=== PATIENT | female | born 1975 | race Caucasian/White ===

== ENCOUNTER 2018-02-10 18:23 | Observation (INO) | payer OTHER ==
[2018-02-10 19:20] VITALS: BMI 22.8
--- NOTE | 2018-02-10 19:24 | PDOC ---
History of Present Illness - General History Source: Patient Exam Limitations: No Limitations - History of Present Illness Initial Comments: The patient is a 42 year old female who presents to the emergency department for evaluation of abnormal ECG. The patient reports visiting her PCP to obtain an ECG and was prompted to visit the emergency department for evaluation of abnormal ECG indicating lateral ischemia. The patient reports intermittent episodes of left sided chest tightness with associated dizziness. She reports multiple episodes of dizziness occurring since Friday. Of note, the patient is currently taking Warfarin. The patient denies changes to vision, shortness of breath, headache, fevers, chills, nausea, vomiting, diarrhea, and constipation. Denies dysuria, frequency, urgency, and hematuria. 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 MEDICATIONS: reviewed ALLERGIES: As per nursing notes Review of Systems General: No fevers or chills, no weakness, no weight loss HEENT: No change in vision. No sore throat,. No ear pain Cardiovascular: (+)Left sided chest tightness. No shortness of breath. Respiratory:No cough, or wheezing. Gastrointestinal: no nausea, vomiting, diarrhea or constipation, No rectal bleeding Genitourinary: No dysuria, hematuria, or frequency Musculoskeletal: No joint or muscle pain or swelling Neurologic: (+)Dizziness. No headache, vertigo, or loss of consciousness. Psychiatric: nor depression Skin: No rashes or easy bruising Endocrine: no increased thirst or abnormal weight change Allergic: no skin or latex allergy All other systems reviewed and normal Physical Exam General: (+)Appears slightly distressed. Well-nourished well-developed individual. HEENT: Throat: Normal, tonsils normal, no erythema or exudate Neck: Supple. Eyes:Pupils equal reactive and round, extraocular motion intact Chest: Nontender to palpation Cardiac: S1-S2 normal, regular rate and rhythm, no murmurs rubs or gallops Respiratory: Lungs clear to auscultation bilateral Abdomen: Soft, nondistended, normal bowel sounds, nontender to palpation diffusely Extremities: Warm, dry, no cyanosis, clubbing, or edema Skin: No rashes Neuro: Alert and oriented x3, nonfocal exam, grossly intact. Psych: Normal mood and affect <Sarah Hirsch - Last Filed: 02/10/18 20:42> - General History Source: Patient ( just slipped and fell landed on the left side of) Exam Limitations: No Limitations - History of Present Illness Initial Comments: 02/10/18 20:01 A portion of this note was documented by scribe services under my direction. I have reviewed the details of the note, within reason, and agree with the documentation. The case summary and management plan written by me. A portion of this note was documented by scribe services under my direction. I have reviewed the details of the note, within reason, and agree with the documentation. The case summary and management plan written by me. Medical decision making: This is a 42-year-old female who comes in complaining of some dizziness that is intermittent as well as some chest discomfort that is intermittent. Patient has history of a PE in the past that resulted in a CVA. Patient is on anticoagulants however she also has a history of hypertension. Patient was sent in from her doctor's office for evaluation of an abnormal cardiogram that shows some lateral ischemia. Will obtain a workup including repeat EKG, cardiac enzymes, CBC, comp, chest x- ray, d-dimer Once workup is complete in the emergency department patient will be admitted to a observation telemetry bed for further evaluation and to rule out ACS. If patient's d-dimer is elevated I will do a CT angiogram of her chest Will reassess and review results of workup 02/10/18 21:32 Reevaluation patient remains stable without complaints no further chest pain in the emergency department. Patient's blood work is unremarkable including a negative troponin and normal d- dimer. Patient will be admitted to an observation telemetry bed under the hospitalist service. <Alvina Low I - Last Filed: 02/10/18 21:33> - General Stated Complaint: ABNORMAL EKG Time Seen by Provider: 02/10/18 19:15 Past History <Sarah Hirsch - Last Filed: 02/10/18 20:42> - Past Medical History COPD: No - Suicide/Smoking/Psychosocial Hx Smoking History: Never smoked Have you smoked in the past 12 months: No Information on smoking cessation initiated: No Hx Alcohol Use: No Drug/Substance Use Hx: No Substance Use Type: None <Alvina Low I - Last Filed: 02/10/18 21:33> - Past Medical History Allergies/Adverse Reactions: Allergies Allergy/AdvReac Type Severity Reaction Status Date / Time No Known Allergies Allergy Verified 02/10/18 18:25 Home Medications: Ambulatory Orders Carvedilol 3 tab PO BID 02/10/18 Lisinopril 5 mg PO DAILY 02/10/18 Warfarin Sodium [Coumadin] 3 mg PO DAILY 02/10/18 *Physical Exam - Vital Signs Last Vital Signs Temp Pulse Resp BP Pulse Ox 98.3 F 68 20 117/74 100 02/10/18 18:25 02/10/18 18:25 02/10/18 18:25 02/10/18 18:25 02/10/18 18:25 <Sarah Hirsch - Last Filed: 02/10/18 20:42> - Vital Signs Last Vital Signs Temp Pulse Resp BP Pulse Ox 98.3 F 68 20 117/74 100 02/10/18 18:25 02/10/18 18:25 02/10/18 18:25 02/10/18 18:25 02/10/18 18:25 <Alvina Low I - Last Filed: 02/10/18 21:33> ED Treatment Course - LABORATORY CBC & Chemistry Diagram: 02/10/18 19:45 02/10/18 19:45 - ADDITIONAL ORDERS Additional order review: Laboratory Results 02/10/18 02/10/18 19:45 19:45 PT with INR 23.3 H INR 2.11 H Urine Color Yellow Urine Appearance Clear Urine pH 5.5 Ur Specific [place] <= 1.005 Urine Protein Negative Urine Glucose (UA) Negative Urine Ketones Negative Urine Blood Negative Urine Nitrite Negative Urine Bilirubin Negative Urine Urobilinogen 0.2 Ur Leukocyte Esterase Negative Urine HCG, Qual Negative 02/10/18 19:45 RBC 4.10 MCV 93.4 MCHC 35.9 RDW 11.6 MPV 8.6 Neutrophils % 72.3 Lymphocytes % 20.9 Monocytes % 5.3 Eosinophils % 1.1 Basophils % 0.4 <Sarah Hirsch - Last Filed: 02/10/18 20:42> - LABORATORY CBC & Chemistry Diagram: 02/10/18 19:45 02/10/18 19:45 <Alvina Low I - Last Filed: 02/10/18 21:33> *DC/Admit/Observation/Transfer - Attestations Scribe Attestion: Documentation prepared by Sarah Hirsch, acting as medical officer for Alvina Low MD. <Sarah Hirsch - Last Filed: 02/10/18 20:42> - Discharge Dispostion Decision to Admit order: Yes <Alvina Low I - Last Filed: 02/10/18 21:33> Diagnosis at time of Disposition: Chest pain Qualifiers: Chest pain type: unspecified Qualified Code(s): R07.9 - Chest pain, unspecified - Discharge Dispostion Disposition: HOME
[2018-02-10 19:57] LABS: PH,URINE 5.5 (4.5-8); URINE APPEARANCE Clear; URINE BILIRUBIN Negative (NEGATIVE); URINE BLOOD Negative (NEGATIVE); URINE GLUCOSE (UA) Negative (NEGATIVE); URINE KETONE Negative (NEGATIVE); URINE LEUK ESTERASE Negative (NEGATIVE); URINE NITRITE Negative (NEGATIVE); URINE PROTEIN Negative (NEGATIVE); URINE UROBILINOGEN 0.2 (0.2-1.0)
[2018-02-10 20:03] LABS: URINE COLOR YELLOW
[2018-02-10 20:04] LABS: BASO % 0.4 % (0-2.0); EOS % 1.1 % (0-4.5); HCG,QUALITATIVE URINE NEGATIVE; HEMATOCRIT 38.3 % (32.4-45.2); HEMOGLOBIN 13.7 GM/dl (10.7-15.3); LYMPH % 20.9 % (8-40); MCH 33.5 pg (25.7-33.7); MCHC 35.9 g/dl (32.0-36.0); MEAN CELL VOLUME 93.4 fl (80-96); MEAN PLT VOLUME 8.6 fl (7.5-11.1); MONO % 5.3 % (3.8-10.2); NEUT % 72.3 % (42.8-82.8); PLATELET COUNT 204 K/MM3 (134-434); RDW 11.6 % (11.6-15.6); WHITE BLOOD COUNT 6.4 K/mm3 (4.0-10.8)
[2018-02-10 20:12] LABS: INR 2.11 (0.82-1.09); PROTHROMBIN TIME (PATIENT) 23.3 SEC (10.2-13.0)
[2018-02-10 20:18] LABS: ALBUMIN 4.1 g/dl (3.5-5.0); ALK PHOS 29 U/L (32-92); ANION GAP 4 (8-16); BILIRUBIN,TOTAL 0.9 mg/dl (0.2-1.0); BLOOD UREA NITROGEN 16 mg/dl (7-18); CALCIUM 8.9 mg/dl (8.4-10.2); CHLORIDE 104 mmol/L (98-107); CO2 27 mmol/L (22-28); GLUCOSE,RANDOM 92 mg/dl (74-106); POTASSIUM 3.6 mmol/L (3.5-5.1); SGOT/AST 15 U/L (10-42); SGPT/ALT 10 U/L (10-40); SODIUM 135 mmol/L (136-145)
[2018-02-10 20:19] LABS: CREATININE < 0.8 mg/dl (0.6-1.3)
--- NOTE | 2018-02-10 23:56 | HP ---
CHIEF COMPLAINT: chest pain PCP: Cardiology: Dr. 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 She had an ECG done at work which revealed ST/T wave abnormalities and was advised to be evaluated in the ED. ER course was notable for: (1) Troponin neg (2) ECG with ST / T wave abnormalities Recent Travel: pt denies PAST MEDICAL HISTORY: PE & CVA 2014, EF 40% ?viral cardiomyopathy PAST SURGICAL HISTORY: pt denies Social History: Smoking: pt denies Alcohol: "rarely" Drugs: pt denies Family History: mother with fibromyalgia father no known medical problems sister with hypothyroid Allergies No Known Allergies Allergy (Verified 02/10/18 18:25) HOME MEDICATIONS: 3 Medication Instructions Recorded Alprazolam [Xanax] 0.5 mg PO ONCE #1 tablet MDD 1 02/10/18 Carvedilol 3 tab PO BID 02/10/18 Lisinopril 5 mg PO DAILY 02/10/18 Warfarin Sodium [Coumadin] 3 mg PO DAILY 02/10/18 REVIEW OF SYSTEMS CONSTITUTIONAL: Absent: fever, chills, diaphoresis, generalized weakness, malaise, loss of appetite, weight change HEENT: Absent: rhinorrhea, nasal congestion, throat pain, throat swelling, difficulty swallowing, mouth swelling, ear pain, eye pain, visual changes CARDIOVASCULAR: Absent: chest pain, syncope, palpitations, irregular heart rate, lightheadedness , peripheral edema RESPIRATORY: Absent: cough, shortness of breath, dyspnea with exertion, orthopnea, wheezing, stridor, hemoptysis GASTROINTESTINAL: Absent: abdominal pain, abdominal distension, nausea, vomiting, diarrhea, constipation, melena, hematochezia GENITOURINARY: Absent: dysuria, frequency, urgency, hesitancy, hematuria, flank pain, genital pain MUSCULOSKELETAL: Absent: myalgia, arthralgia, joint swelling, back pain, neck pain SKIN: Absent: rash, itching, pallor HEMATOLOGIC/IMMUNOLOGIC: Absent: easy bleeding, easy bruising, lymphadenopathy, frequent infections ENDOCRINE: Absent: unexplained weight gain, unexplained weight loss, heat intolerance, cold intolerance NEUROLOGIC: Absent: headache, focal weakness or paresthesias, dizziness, unsteady gait, seizure, mental status changes, bladder or bowel incontinence PSYCHIATRIC: Absent: anxiety, depression, suicidal or homicidal ideation, hallucinations. PHYSICAL EXAMINATION Vital Signs - 24 hr 3 02/10/18 02/10/18 02/10/18 18:25 21:44 23:08 Temperature 98.3 F Pulse Rate 68 Pulse Rate [ 68 Left] Respiratory 20 16 16 Rate Blood Pressure 117/74 Blood Pressure 103/60 [Right] O2 Sat by Pulse 100 100 100 Oximetry (%) GENERAL: Awake, alert, and fully oriented, in no acute distress. HEAD: Normal with no signs of trauma. EYES: Pupils equal, round and reactive to light, extraocular movements intact, sclera anicteric, conjunctiva clear. No lid lag. EARS, NOSE, THROAT: Ears normal, nares patent, oropharynx clear without exudates. Moist mucous membranes. NECK: Normal range of motion, supple without lymphadenopathy, JVD, or masses. LUNGS: Breath sounds equal, clear to auscultation bilaterally. No wheezes, and no crackles. No accessory muscle use. HEART: Regular rate and rhythm, normal S1 and S2 without murmur, rub or gallop. ABDOMEN: Soft, nontender, not distended, normoactive bowel sounds, no guarding, no rebound, no masses. No hepatomegaly or splenomegaly. MUSCULOSKELETAL: Normal range of motion at all joints. No bony deformities or tenderness. No CVA tenderness. UPPER EXTREMITIES: 2+ pulses, warm, well-perfused. No cyanosis. No clubbing. No peripheral edema. LOWER EXTREMITIES: 2+ pulses, warm, well-perfused. No calf tenderness. No peripheral edema. NEUROLOGICAL: Cranial nerves II-XII intact. Normal speech. Normal gait. PSYCHIATRIC: Cooperative. Good eye contact. Appropriate mood and affect. SKIN: Warm, dry, normal turgor, no rashes or lesions noted, normal capillary refill. Laboratory Results - last 24 hr 3 02/10/18 02/10/18 02/10/18 19:45 19:45 19:45 WBC 6.4 RBC 4.10 Hgb 13.7 Hct 38.3 MCV 93.4 MCH 33.5 MCHC 35.9 RDW 11.6 Plt Count 204 MPV 8.6 Absolute Neuts (auto) 4.7 Neutrophils % 72.3 Lymphocytes % 20.9 Monocytes % 5.3 Eosinophils % 1.1 Basophils % 0.4 PT with INR INR D-Dimer < 200 Sodium Potassium Chloride Carbon Dioxide Anion Gap BUN Creatinine Creat Clearance w eGFR Random Glucose Calcium Total Bilirubin AST ALT Alkaline Phosphatase Creatine Kinase Troponin I Total Protein Albumin Urine Color Yellow Urine Appearance Clear Urine pH 5.5 Ur Specific [place] <= 1.005 Urine Protein Negative Urine Glucose (UA) Negative Urine Ketones Negative Urine Blood Negative Urine Nitrite Negative Urine Bilirubin Negative Urine Urobilinogen 0.2 Ur Leukocyte Esterase Negative Urine HCG, Qual Negative 3 02/10/18 02/10/18 02/10/18 19:45 19:45 19:45 WBC RBC Hgb Hct MCV MCH MCHC RDW Plt Count MPV Absolute Neuts (auto) Neutrophils % Lymphocytes % Monocytes % Eosinophils % Basophils % PT with INR 23.3 H INR 2.11 H D-Dimer Sodium 135 L Potassium 3.6 Chloride 104 Carbon Dioxide 27 Anion Gap 4 L BUN 16 Creatinine < 0.8 Creat Clearance w eGFR > 60 Random Glucose 92 Calcium 8.9 Total Bilirubin 0.9 AST 15 ALT 10 Alkaline Phosphatase 29 L Creatine Kinase 64 Troponin I 0.03 Total Protein 7.0 Albumin 4.1 Urine Color Urine Appearance Urine pH Ur Specific [place] Urine Protein Urine Glucose (UA) Urine Ketones Urine Blood Urine Nitrite Urine Bilirubin Urine Urobilinogen Ur Leukocyte Esterase Urine HCG, Qual ECG normal sinus rhythm vent rate 66, QTC 410 normal sinus rhythma possible anterior infarct, age undetermined ST & T wave abnormality: TWI leads I, II, II, aVF, V3-V6, flattened aVL, V1, V2 ASSESSMENT/PLAN: 42yF with PMH PE and CVA, ? cardiomyopathy, EF 40% presented to the ED with intermittent chest pain and dizziness. Chest pain - r/o ACS although doubtful as pain is atypical in nature - trend troponin x 2 more - repeat ECG in am - will call private printer slotter operator in AM and obtain old ECG, if not available, cardiology consult - has an appointment with her printer slotter operator in 6 days, consider outpatient workup h/o PE - cont warfarin DVT PPX - low risk, expected LOS <48h, defer heparin FEN - tolerating po - BMP in am - low sodium diet as tolerated Dispo: pt currently requires further observation for management of her emergent condition. Visit type - Emergency Visit Emergency Visit: Yes ED Registration Date: 02/10/18 Care time: The patient presented to the Emergency Department on the above date and was hospitalized for further evaluation of their emergent condition. - New Patient This patient is new to me today: Yes Date on this admission: 02/10/18 - Critical Care Critical Care patient: No Hospitalist Screening - Colonoscopy Questionnaire Colonoscopy Questionnaire: Colonoscopy Questionnaire - Patient: 50 - 75 years old and never had a screening colonoscopy: No History of colon or rectal polyps, or CA: No History of IBD, Crohn's disease or UC: No History of abdominal radiation therapy as a child: No - Relative: 1 with colon or rectal CA, or polyps at age 60 or younger: No Colon or rectal CA diagnosed at age 45 or younger: No Multiple relatives with colon or rectal CA: No - Outcome: Screening Result: Negative Screen
[2018-02-10] MEDS ORDERED: CARVEDILOL 6.25 MG TABLET (FP) PO SCH (23:57)
[2018-02-11] MEDS: CARVEDILOL 6.25 MG TABLET (FP) PO SCH ×3 (00:30→22:09)
[2018-02-11] MEDS ORDERED: ASPIRIN 81 MG CHEWABLE TABLETS PO ONE (05:18)
[2018-02-11 08:02] LABS: BASO % 0.7 % (0-2.0); EOS % 1.5 % (0-4.5); LYMPH % 25.8 % (8-40)
[2018-02-11 08:03] LABS: HEMATOCRIT 37.5 % (32.4-45.2); HEMOGLOBIN 13.1 GM/dl (10.7-15.3); MCH 32.7 pg (25.7-33.7); MCHC 34.9 g/dl (32.0-36.0); MEAN CELL VOLUME 93.6 fl (80-96); MONO % 7.4 % (3.8-10.2); NEUT % 64.6 % (42.8-82.8); PLATELET COUNT 192 K/MM3 (134-434); RBC 4.01 M/mm3 (3.60-5.2); RDW 11.9 % (11.6-15.6); WHITE BLOOD COUNT 4.2 K/mm3 (4.0-10.8)
[2018-02-11 08:10] LABS: INR 2.2 (0.82-1.09); PROTHROMBIN TIME (PATIENT) 24.3 SEC (10.2-13.0)
--- NOTE | 2018-02-11 08:17 | PN ---
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 Patient was admitted from the emergency department for chest pain r/o acs. patient does report intermittent episodes of dizziness however she denies any syncopal episodes Vital Signs Period Temp Pulse Resp BP Sys/[place] Pulse Ox Last 24 Hr 97.6 F-98.3 F 62-68 16-20 97-117/50-74 100-100 GENERAL: The patient is awake, alert, and fully oriented, in no acute distress. HEAD: Normal with no signs of trauma. EYES: PERRL, extraocular movements intact, sclera anicteric, conjunctiva clear. No ptosis. ENT: Ears normal, nares patent, oropharynx clear without exudates, moist mucous membranes. NECK: Trachea midline, full range of motion, supple. LUNGS: Breath sounds equal, clear to auscultation bilaterally, no wheezes, no crackles, no accessory muscle use. HEART: Regular rate and rhythm, S1, S2 without murmur, rub or gallop. ABDOMEN: Soft, nontender, nondistended, normoactive bowel sounds, no guarding, no rebound, no hepatosplenomegaly, no masses. EXTREMITIES: 2+ pulses, warm, well-perfused, no edema. NEUROLOGICAL: Cranial nerves II through XII grossly intact. Normal speech, gait not observed. PSYCH: Normal mood, normal affect. SKIN: Warm, dry, normal turgor, no rashes or lesions noted Laboratory Results - last 24 hr 02/10/18 02/10/18 02/10/18 19:45 19:45 19:45 WBC 6.4 RBC 4.10 Hgb 13.7 Hct 38.3 MCV 93.4 MCH 33.5 MCHC 35.9 RDW 11.6 Plt Count 204 MPV 8.6 Absolute Neuts (auto) 4.7 Neutrophils % 72.3 Lymphocytes % 20.9 Monocytes % 5.3 Eosinophils % 1.1 Basophils % 0.4 PT with INR INR D-Dimer < 200 Sodium Potassium Chloride Carbon Dioxide Anion Gap BUN Creatinine Creat Clearance w eGFR Random Glucose Calcium Total Bilirubin AST ALT Alkaline Phosphatase Creatine Kinase Troponin I Total Protein Albumin Urine Color Yellow Urine Appearance Clear Urine pH 5.5 Ur Specific [place] <= 1.005 Urine Protein Negative Urine Glucose (UA) Negative Urine Ketones Negative Urine Blood Negative Urine Nitrite Negative Urine Bilirubin Negative Urine Urobilinogen 0.2 Ur Leukocyte Esterase Negative Urine HCG, Qual Negative 02/10/18 02/10/18 02/10/18 19:45 19:45 19:45 WBC RBC Hgb Hct MCV MCH MCHC RDW Plt Count MPV Absolute Neuts (auto) Neutrophils % Lymphocytes % Monocytes % Eosinophils % Basophils % PT with INR INR D-Dimer Sodium 135 L Potassium 3.6 Chloride 104 Carbon Dioxide 27 Anion Gap 4 L BUN 16 Creatinine < 0.8 Creat Clearance w eGFR > 60 Random Glucose 92 Calcium 8.9 Total Bilirubin 0.9 AST 15 ALT 10 Alkaline Phosphatase 29 L Creatine Kinase 64 Troponin I 0.03 Total Protein 7.0 Albumin 4.1 Urine Color Urine Appearance Urine pH Ur Specific [place] Urine Protein Urine Glucose (UA) Urine Ketones Urine Blood Urine Nitrite Urine Bilirubin Urine Urobilinogen Ur Leukocyte Esterase Urine HCG, Qual 02/10/18 02/11/18 02/11/18 19:45 02:00 02:00 WBC RBC Hgb Hct MCV MCH MCHC RDW Plt Count MPV Absolute Neuts (auto) Neutrophils % Lymphocytes % Monocytes % Eosinophils % Basophils % PT with INR 23.3 H INR 2.11 H D-Dimer Sodium Potassium Chloride Carbon Dioxide Anion Gap BUN Creatinine Creat Clearance w eGFR Random Glucose Calcium Total Bilirubin AST ALT Alkaline Phosphatase Creatine Kinase 56 Troponin I Cancelled 0.33 H Total Protein Albumin Urine Color Urine Appearance Urine pH Ur Specific [place] Urine Protein Urine Glucose (UA) Urine Ketones Urine Blood Urine Nitrite Urine Bilirubin Urine Urobilinogen Ur Leukocyte Esterase Urine HCG, Qual Active Medications Generic Name Dose Route Start Last Admin Trade Name Freq PRN Reason Stop Dose Admin Carvedilol 18.75 mg 02/11/18 00:30 02/11/18 00:30 Coreg - PO 18.75 mg BID CHAPIS Administration Lisinopril 5 mg 02/11/18 10:00 Prinivil PO DAILY [facility] Warfarin Sodium 3 mg 02/10/18 23:57 02/11/18 00:00 Coumadin - PO 3 mg DAILY@1800 CHAPIS Administration EKG nsr anterior infarct repeat EKG 02/11/18 anterior infarct chest xray no infilitrate no effusion ASSESSMENT/PLAN: 1) cardiovascular Chest pain R/O ACS - Patient is pain-free at this time troponin x 3 wnl, repeat ekg notable for anterior infarct, pt is pending stress test today - Pending echo last echo was completed 2015 EF 40%, mild MR - obtained records from Dr. Cui office, patient was evaluated by Dr. Thomas on 04/29/2016, coronary artery CT angiogram (July 2015) normal coronary arteries prior small infarcts C/R scarring versus prior myocarditis. TOD negative for PFO or thrombus - orthostatic vital signs - Message left with Dr. Cui board of education secretary , for a return phone call requested - Appreciate cardiology input 2) heme/onc h/o PE - cont warfarin, patient has been evaluated by hematology which resulted as negative workup DVT PPX - on coumadin FEN - tolerating po - replete magnesium - BMP in am - low sodium diet as tolerated Dispo: pt currently requires further observation for management of her emergent condition.
[2018-02-11 08:44] LABS: ANION GAP 5 (8-16); BLOOD UREA NITROGEN 17 mg/dl (7-18); CALCIUM 8.6 mg/dl (8.4-10.2); CHLORIDE 107 mmol/L (98-107); CO2 26 mmol/L (22-28); GLUCOSE,RANDOM 95 mg/dl (74-106); MAGNESIUM 1.7 mg/dL (1.8-2.4); PHOSPHOROUS 3.9 mg/dl (2.5-4.6); POTASSIUM 3.7 mmol/L (3.5-5.1); SODIUM 138 mmol/L (136-145)
[2018-02-11 08:48] LABS: CREATININE < 0.8 mg/dl (0.6-1.3)
[2018-02-11] MEDS ORDERED: MAGNESIUM SULFATE IN WATER 2 GM/50 ML IVPB IVPB ONE (09:30)
--- NOTE | 2018-02-11 09:59 | EKG ---
Test Reason : Blood Pressure : / mmHG Vent. Rate : 066 BPM Atrial Rate : 066 BPM P-R Int : 130 ms QRS Dur : 076 ms QT Int : 392 ms P-R-T Axes : 054 041 266 degrees QTc Int : 410 ms NORMAL SINUS RHYTHM POSSIBLE ANTERIOR INFARCT , AGE UNDETERMINED ABNORMAL ECG NO PREVIOUS ECGS AVAILABLE Confirmed by JUAN DOHERTY, SHELIA ([id number]) on 02/11/2018 9:58:58 AM Referred By: DR TADEO Confirmed By:SHELIA MARTINEZ MD
[2018-02-11] MEDS ORDERED: LISINOPRIL 5 MG TABLET (FP) PO SCH (10:00)
--- NOTE | 2018-02-11 11:03 | CON.CARD ---
Consult Consult Specialty:: Cardiology Reason for Consultation:: cp - History of Present Illness History of Present Illness: OBJECTIVE:patient is a 42-year-old female with a past medical history of viral cardiomyopathy, CVA (s/p neurovascular intervention 07/23) and pulmonary embolism (07/23, coumadin). Patient was admitted from the emergency department for chest pain r/o acs. - History Source History Provided By: Medical Record - Alcohol/Substance Use Hx Alcohol Use: No - Smoking History Smoking history: Never smoked Have you smoked in the past 12 months: No Home Medications - Allergies Allergies/Adverse Reactions: Allergies Allergy/AdvReac Type Severity Reaction Status Date / Time No Known Allergies Allergy Verified 02/10/18 18:25 - Home Medications Home Medications: Ambulatory Orders Alprazolam [Xanax] 0.5 mg PO ONCE #1 tablet MDD 1 02/10/18 Carvedilol 3 tab PO BID 02/10/18 Lisinopril 5 mg PO HS 02/10/18 Warfarin Sodium [Coumadin] 3 mg PO DAILY 02/10/18 Review of Systems - Review of Systems Constitutional: reports: No Symptoms Eyes: reports: No Symptoms HENT: reports: No Symptoms Neck: reports: No Symptoms Cardiovascular: reports: Chest Pain Gastrointestinal: reports: No Symptoms Genitourinary: reports: No Symptoms Breasts: reports: No Symptoms Reported Musculoskeletal: reports: No Symptoms Integumentary: reports: No Symptoms Neurological: reports: No Symptoms Endocrine: reports: No Symptoms Hematology/Lymphatic: reports: No Symptoms Psychiatric: reports: No Symptoms Vital Signs: Vital Signs Temperature 97.6 F 02/11/18 06:00 Pulse Rate 67 02/11/18 06:00 Respiratory Rate 18 02/11/18 06:00 Blood Pressure 107/50 02/11/18 06:00 O2 Sat by Pulse Oximetry (%) 100 02/11/18 06:00 Constitutional: Yes: Well Nourished, No Distress, Calm Eyes: Yes: WNL, Conjunctiva Clear, EOM Intact HENT: Yes: WNL, Atraumatic, Normocephalic Neck: Yes: WNL, Supple, Trachea Midline Respiratory: Yes: WNL, Regular, CTA Bilaterally Gastrointestinal: Yes: WNL, Normal Bowel Sounds Renal/: Yes: WNL Cardiovascular: Yes: WNL, Regular Rate and Rhythm Musculoskeletal: Yes: WNL Extremities: Yes: WNL Integumentary: Yes: WNL Neurological: Yes: WNL, Alert, Oriented ...Motor Strength: WNL Psychiatric: Yes: WNL, Alert, Oriented - Other Data Labs, Other Data: CBC, BMP 02/11/18 07:30 02/11/18 07:30 INR, PTT INR 2.20 (0.82-1.09) H 02/11/18 07:30 Troponin, BNP 02/10/18 02/11/18 02/11/18 19:45 02:00 02:00 Troponin I 0.03 Cancelled 0.33 H 02/11/18 07:30 Troponin I 0.04 Troponin, BNP 02/10/18 02/11/18 02/11/18 19:45 02:00 02:00 Troponin I 0.03 Cancelled 0.33 H 02/11/18 07:30 Troponin I 0.04 Imaging - Results Chest X-ray: Image Reviewed (wnl) EKG: Image Reviewed (sr inverted t waves laterally) Problem List - Problems (1) Chest pain Code(s): R07.9 - CHEST PAIN, UNSPECIFIED Qualifiers: Chest pain type: unspecified Qualified Code(s): R07.9 - Chest pain, unspecified Assessment/Plan cp sx r/o mi negpe cva cmp echo today - nl ef plan; cont ac ECHO st nonconclusive for inducible for inducible ischemia ( short axis stress immages misaligned, lack of apical augmentation at stress) Will need MIBI stress test for risk stratification. keep ldl below 70
[2018-02-11] MEDS: LISINOPRIL 5 MG TABLET (FP) PO SCH ×2 (11:27→22:11)
--- NOTE | 2018-02-11 11:53 | EKG ---
Test Reason : Blood Pressure : / mmHG Vent. Rate : 061 BPM Atrial Rate : 061 BPM P-R Int : 134 ms QRS Dur : 096 ms QT Int : 430 ms P-R-T Axes : -09 023 255 degrees QTc Int : 432 ms NORMAL SINUS RHYTHM LOW VOLTAGE QRS CANNOT RULE OUT ANTERIOR INFARCT (CITED ON OR BEFORE 10-FEB-2018) T WAVE ABNORMALITY, CONSIDER LATERAL ISCHEMIA ABNORMAL ECG WHEN COMPARED WITH ECG OF 10-FEB-2018 19:27, SERIAL CHANGES OF ANTERIOR INFARCT PRESENT Confirmed by JUAN DOHERTY, SHELIA ([id number]) on 02/11/2018 11:52:57 AM Referred By: DR FLOWERS Confirmed By:SHELIA MARTINEZ MD
[2018-02-11] MEDS ORDERED: PT OWN MED DRAWER 7, Y5N ONE (13:03)
[2018-02-11] MEDS: WARFARIN NA 3 MG TABLET PO SCH ×2 (18:13)
--- NOTE | 2018-02-11 18:24 | HOSP ---
Physical Examination Vital Signs: Vital Signs Temperature 97.6 F 02/11/18 06:00 Pulse Rate 66 02/11/18 11:27 Respiratory Rate 17 02/11/18 11:27 Blood Pressure 98/52 02/11/18 11:27 O2 Sat by Pulse Oximetry (%) 100 02/11/18 06:00 Labs: CBC, BMP 02/11/18 07:30 02/11/18 07:30 Hospitalist Encounter Assessment: PT seen and examined following stress. Reports intermitted cp to L shoulder described as a pulling, no sob, no n/v, neck or jaw pain, no referring ASA 81mg Stress echo tomorrow start lipitor 40mg hs lipid panel cont coumadin, coreg, lisinopril npo after midnight care discussed w pt and at bedside
[2018-02-11 20:16] LABS: CHOLESTEROL 154 mg/dL (50-200); HDL CHOLESTEROL 63 mg/dL (40-60); TRIGLYCERIDES 76 mg/dL (35-160)
[2018-02-11] MEDS ORDERED: ATORVASTATIN CA 40 MG TABLET (FP) PO SCH (22:00)
[2018-02-11] MEDS ORDERED: ZOLPIDEM TARTRATE 5 MG TABLET PO ONE (23:28)
[2018-02-12] MEDS ORDERED: ASPIRIN COATED 81 MG TABLET.EC PO SCH (10:00)
--- NOTE | 2018-02-12 11:37 | PN ---
Progress Note, Physician History of Present Illness: This is a 42 year old female with a significant past medical history of CVA & PE 07/2015, cardiomyopathy (?viral) who presented to the ED with intermittent pulling pain left upper chest since Friday as well as intermittent dizziness. She had an ECG done at work which revealed ST/T wave abnormalities and was advised to be evaluated in the ED. ER course was notable for: (1) Troponin neg (2) ECG with ST / T wave abnormalities - Current Medication List Current Medications: Active Medications Aspirin (Ecotrin -) 81 mg PO DAILY [facility] Atorvastatin Calcium (Lipitor -) 40 mg PO HS [facility] Last Admin: 02/11/18 22:09 Dose: Not Given Carvedilol (Coreg -) 18.75 mg PO BID [facility] Last Admin: 02/11/18 22:09 Dose: 18.75 mg Lisinopril (Prinivil) 5 mg PO DAILY [facility] Last Admin: 02/11/18 22:11 Dose: 5 mg Warfarin Sodium (Coumadin -) 3 mg PO DAILY@1800 [facility] Last Admin: 02/11/18 18:13 Dose: 3 mg - Objective Vital Signs: Vital Signs Temperature 98.3 F 02/12/18 05:38 Pulse Rate 66 02/12/18 05:36 Respiratory Rate 18 02/12/18 05:47 Blood Pressure 91/70 02/12/18 05:36 O2 Sat by Pulse Oximetry (%) 100 02/12/18 05:47 Labs: CBC, BMP 02/11/18 07:30 02/11/18 07:30 INR, PTT INR 2.20 (0.82-1.09) H 02/11/18 07:30 Problem List - Problems (1) Chest pain Assessment/Plan: Pt for stress MIBI today; if no significant ischemia, pt may be followed as outpatient from a cardiologic perspective. Code(s): R07.9 - CHEST PAIN, UNSPECIFIED Qualifiers: Chest pain type: unspecified Qualified Code(s): R07.9 - Chest pain, unspecified (2) HTN (hypertension) Assessment/Plan: on lisinopril and carvedilol. Code(s): I10 - ESSENTIAL (PRIMARY) HYPERTENSION (3) Hyperlipidemia Assessment/Plan: statin; diet control; exercise as aids to controlling lipids. Code(s): E78.5 - HYPERLIPIDEMIA, UNSPECIFIED (4) CVA (cerebral vascular accident) Code(s): I63.9 - CEREBRAL INFARCTION, UNSPECIFIED
[2018-02-12] MEDS: CARVEDILOL 6.25 MG TABLET (FP) PO SCH (12:00)
[2018-02-12] MEDS: LISINOPRIL 5 MG TABLET (FP) PO SCH (12:02)
[2018-02-12] MEDS ORDERED: MAGNESIUM OXIDE 400 MG TABLET (FP) PO ONE ×2 (12:09→14:45)
[2018-02-12 12:41] VITALS: BP 108/47; PULSE 78; TEMP 98.4
--- NOTE | 2018-02-12 18:52 | DS ---
Physical Exam: SUBJECTIVE: Patient seen and examined. Mild left sided cp with movement. Overall improved OBJECTIVE: Vital Signs Period Temp Pulse Resp BP Sys/[place] Pulse Ox Last 24 Hr 97.8 F-98.4 F 61-78 16-20 88-118/40-70 98-100 PHYSICAL EXAM Neuro: Alert, awake, cn 2-12intact Pulm: CTAB CV: s1 s2 rrr Abd: s nt nd +bs Ext: warm no le edema msk: l shoulder tenderness , + reproducible Laboratory Results - last 24 hr 02/11/18 07:00 Triglycerides 76 Cholesterol 154 Total LDL Cholesterol 90 HDL Cholesterol 63 H HOSPITAL COURSE: Date of Admission:02/10/18 Date of Discharge: 02/12/18 Minutes to complete discharge: 37 Discharge Summary Reason For Visit: CHEST PAIN Hospital Course: DC summary: 42 year old female with a significant past medical history of CVA & PE 07/2015, cardiomyopathy (?viral) presented to the ED with intermittent pulling pain left upper chest since Friday as well as intermittent dizziness. She had an ECG done at work which revealed ST/T wave abnormalities and was advised to be evaluated in the ED. Stress echo negative for ischemia, EF 47% Continue coreg, lisinopril h/o PE - cont warfarin Start low dose statin advised pt to follow up with pcp and cardiology in 2 weeks, pt agrees Condition: Stable - Instructions Diet, Activity, Other Instructions: Please return to the ED for any new, persistent, or worsening symptoms. Keep scheduled appointment with her equity research analyst Dr Thomas Resume home medications as directed Note new med: lipitor, follow with your equity research analyst (referral enclosed) in 2 weeks Referrals: Anselmo Shah MD [Staff Physician] - 2 Weeks Nithin Thomas MD [Non Staff, Medical] - 02/16/18 (please keep scheduled appointment) Disposition: HOME - Home Medications Comprehensive Discharge Medication List: Ambulatory Orders Alprazolam [Xanax] 0.5 mg PO ONCE #1 tablet MDD 1 02/10/18 Carvedilol 3 tab PO BID 02/10/18 Lisinopril 5 mg PO HS 02/10/18 Warfarin Sodium [Coumadin] 3 mg PO DAILY 02/10/18 Atorvastatin Calcium [Lipitor] 10 mg PO HS #30 tablet 02/12/18 This patient is new to me today: Yes Date on this admission: 02/12/18 Emergency Visit: Yes ED Registration Date: 02/10/18 Care time: The patient presented to the Emergency Department on the above date and was hospitalized for further evaluation of their emergent condition. Critical Care patient: No - Discharge Referral Referred to [facility] No
== END 2018-02-12 16:31 | disposition home or self-care (01) ==
LOC: FER 18:23 → FM/S 21:34 → UNDOADMOB 23:08 → J4W 02-11 17:45
PROVIDERS: ADMIT Internal Medicine; ATTEND Nurse Practitioner Acute Care
PROC: 3E033GC Introduction of Other Therapeutic Substance into Peripheral Vein, Percutaneous Approach (ICD-10-PCS; principal; 2018-02-10)
DX: R07.9 Chest pain, unspecified (principal); I10 Essential (primary) hypertension; E78.5 Hyperlipidemia, unspecified; I42.9 Cardiomyopathy, unspecified; Z86.711 Personal history of pulmonary embolism; Z86.73 Personal history of transient ischemic attack (TIA), and cerebral infarction without residual deficits; Z79.01 Long term (current) use of anticoagulants
CPT/HCPCS: 36415; 71045-TC-FY; 78452-TC; 80048; 80053; 80061; 81003; 82550; 83721; 83735; 84100; 84484; 84703; 85025; 85379; 85610; 93005; 93017; 93306-TC; 93351; 99283-25; A9502; G0378